=== PATIENT | male | born 1955 | race African-American/Black ===

== ENCOUNTER 2021-01-22 05:15 | Day surgery (SDC) | payer OTHER ==
[2021-01-21 13:31] VITALS: BMI 30.5
[2021-01-22] MEDS ORDERED: MIDAZOLAM HCL 2 MG/2 ML SINGLE DOSE VIAL ONE (08:33)
[2021-01-22] MEDS ORDERED: KETOROLAC TROMETHAMINE 30 MG/1 ML VIAL ONE (09:14)
[2021-01-22 09:43] VITALS: PULSE 80
[2021-01-22 15:33] VITALS: BP 130/80; TEMP 98
== END 2021-01-22 12:00 | disposition home or self-care (01) ==
LOC: JASU-SURG 05:15
PROVIDERS: ATTEND Urology
PROC: 0TF4XZZ Fragmentation in Left Kidney Pelvis, External Approach (ICD-10-PCS; principal; 2021-01-22 09:00)
DX: N20.0 Calculus of kidney (principal)